=== PATIENT | male | born 1945 | race Caucasian/White ===

== ENCOUNTER 2018-05-23 12:54 | Observation (INO) ==
[2018-05-23] MEDS ORDERED: Sod Chloride 0.9% Inj 1,000 ML IV.SIG ONE (13:31)
[2018-05-23 14:08] LABS: Baso % (Auto) 0.4 % (0.0-2.0); Eos # (Auto) 0.1 th/mm3 (0.0-0.4); Eos % (Auto) 2.3 % (0.0-4.0); Hematocrit 41.4 % (39.0-51.0); Hemoglobin 14.3 gm/dL (13.0-17.0); Lymph # (Auto) 1.8 th/mm3 (1.0-4.8); Lymph % (Auto) 34.7 % (9.0-44.0); Mean Corpuscular HGB Conc 34.6 % (32.0-36.0); Mean Corpuscular Hemoglobin 31.6 pg (27.0-34.0); Mean Corpuscular Volume 91.4 fL (80.0-100.0); Mean Platelet Volume 9.1 fL (7.0-11.0); Mono # (Auto) 0.4 th/mm3 (0.0-0.9); Mono % (Auto) 7.6 % (0.0-8.0); Neut # (Auto) 2.9 th/mm3 (1.8-7.7); Platelet Count 140 th/mm3 (150-450); Red Blood Count 4.54 mil/mm3 (4.50-5.90); Red Cell Distribution Width 12.8 % (11.6-17.2); White Blood Count 5.2 th/mm3 (4.0-11.0)
[2018-05-23 14:35] LABS: Creatine Kinase 351 U/L (39-308)
--- NOTE | 2018-05-23 14:44 | FL ---
EXAM DATE: 05/23/2018 2:39 PM EDT AGE/SEX: 72 years / Male INDICATIONS: Difficulty Swallowing, Patient states that he got steak stuck mid chest CLINICAL DATA: This is the patient's initial encounter. Patient reports that signs and symptoms have been present for 2 days and indicates a pain score of 5/10. MEDICAL/SURGICAL HISTORY: Hypertension. None. COMPARISON: No prior exams available for comparison. FLUORO TIME: 1.5 IMAGE COUNT: Digital images only FINDINGS: Air-contrast views of the hypopharynx demonstrate a normal mucosal surface without filling defect. R apid sequence images of the hypopharynx and cervical esophagus during the passage of barium demonstra te a normal swallowing function. No evidence of aspiration. Multiphasic examination of the esophagu s demonstrates extensive filling defect within the mid to distal esophagus. Very minimal contrast pro ceeded into the distal esophagus/GE junction with limited evaluation. CONCLUSION: Extensive filling defects within the mid to distal esophagus likely representing debris. Evaluation o f distal esophagus is very limited. Patient may have significant narrowing. Endoscopy and/or CT chest may be warranted. Electronically signed by: Yahir Ahn MD 05/23/2018 2:42 PM EDT
[2018-05-23 14:47] LABS: CKMB Percent 1.1 % (0.0-4.0); Creatine Kinase MB 3.8 ng/mL (0.5-3.6)
[2018-05-23 14:50] LABS: Alanine Aminotransferase 41 U/L (12-78); Albumin 4.2 g/dL (3.4-5.0); Anion Gap 8 meq/L (5-15); Aspartate Aminotransferase 22 U/L (15-37); Blood Urea Nitrogen 23 mg/dL (7-18); Calcium 9.4 mg/dL (8.5-10.1); Carbon Dioxide 27.4 meq/L (21.0-32.0); Chloride 108 meq/L (98-107); Glomerular Filtration Rate 56 mL/min (>89); Glucose,Random 94 mg/dL (74-106); Lipase 94 U/L (73-393); Potassium 4.5 meq/L (3.5-5.1); Sodium 143 meq/L (136-145)
[2018-05-23 14:53] LABS: Alkaline Phosphatase 62 U/L (45-117); Total Protein 7.4 g/dL (6.4-8.2)
--- NOTE | 2018-05-23 15:03 | XR ---
EXAM DATE: 05/23/2018 2:57 PM EDT AGE/SEX: 72 years / Male INDICATIONS: Difficulty CLINICAL DATA: This is the patient's initial encounter. Patient reports that signs and symptoms have been present for 1 day and indicates a pain score of 5/10. MEDICAL/SURGICAL HISTORY: Hypertension. None. COMPARISON: No prior exams available for comparison. FINDINGS: A single AP view of the chest demonstrates the lungs to be symmetrically aerated without evidence of mass, infiltrate or effusion. Basilar atelectasis minimal. The cardiomediastinal contours are unrema rkable. Osseous structures are intact. CONCLUSION: Minimal basilar atelectasis. Exam otherwise unremarkable. Electronically signed by: Anthony Robins MD 05/23/2018 3:01 PM EDT
[2018-05-23] MEDS ORDERED: Glycopyrrolate Inj 1 MG/5 ML Syringe IV.PUSH ONE (15:14)
[2018-05-23] MEDS ORDERED: Lidocaine PF 1% Inj 5 ML Syringe INFILTRATN ONE (15:14)
[2018-05-23] MEDS ORDERED: Succinylcholine Inj 100 MG/5 ML Syringe IV.PUSH ONE (15:14)
[2018-05-23] MEDS ORDERED: hydrALAZINE HCl Inj 20 MG/ML Vial IV.PUSH ONE (15:14)
[2018-05-23] MEDS ORDERED: Bisacodyl 10 MG Supp RECTAL PRN (16:18)
[2018-05-23] MEDS ORDERED: Acetaminophen 325 MG Tablet PO PRN (16:18)
[2018-05-23] MEDS ORDERED: Temazepam 15 MG Capsule PO PRN (16:18)
--- NOTE | 2018-05-23 16:28 | ED ---
HPI General Chief Complaint: Abdominal Pain Stated Complaint: difficulty swallowing Time Seen by Provider: 05/23/18 13:19 Source: patient and family Mode of arrival: ambulatory Limitations: no limitations History of Present Illness HPI narrative: 72-year-old male the presents to the ED for evaluation of trouble swallowing. Patient has had this for since yesterday. Per patient yesterday he had dinner and then he noted that he could not keep anything down and all his foot came back up. He states that he has had stuff like this before where he usually does not stay this long. Per patient today he had breakfast and all he was doing seen in the [facility] and then everything came back up. He cannot keep anything down. Per patient ever since he has not been able to even keep down his secretions. He keeps throwing up his saliva and phlegm. He has tried to drink fluids but not success. He states that he feels like there is is a "blockage". But denies feeling there is a food stuck on his throat. Per patient he feels like he just will not go. He states that he is never had an EGD before. Per patient he currently has no pain. He does feel nauseous and is actively coughing up and throwing up his secretions. She denies any chest pain or shortness of breath. No other medical issues at this time. Denies any recent surgeries. Per patient he is never been seen for this before as he usually gets better on his own. Related Data Home Medications Medication Instructions Recorded Confirmed aspirin 81 mg PO DAILY 05/23/18 05/23/18 citalopram 20 mg PO DAILY 05/23/18 05/23/18 diclofenac potassium 75 mg PO DAILY 05/23/18 05/23/18 glucosamine sulfate [Glucosamine] 2,000 mg PO BID 05/23/18 05/23/18 losartan 50 mg PO DAILY 05/23/18 05/23/18 simvastatin 20 mg PO QPM 05/23/18 05/23/18 Allergies Allergy/AdvReac Type Severity Reaction Status Date / Time No Known Allergies Allergy Unverified 05/23/18 13:12 Review of Systems ROS Unobtainable All other systems reviewed negative except as stated in HPI [facility] Medical History Medical History Back ache (Acute) Hypercholesteremia (Acute) Hypertension (Acute) Left knee pain (Acute) Prostate CA (Acute) Spermatic cord cyst (Acute) Social History Social History Substance History: No History of Abuse Smoking Status: Former smoker Tobacco Type: Cigarettes How Often Do You Have a Drink Containing Alcohol: 2 to 4 times a month Recent Travel in [facility] within the Last 8 Weeks: No Recent Out of Country Travel within the Last 8 Weeks: No Immunization History Tetanus Immunization: <5 Years Hx Influenza Vaccine This Season: Yes Exam Narrative Exam Narrative: GENERAL: Well-appearing and slightly obese SKIN: Focused skin assessment warm/dry. HEAD: Atraumatic. Normocephalic. EYES: Pupils equal and round. No scleral icterus. No injection or drainage. ENT: No nasal bleeding or discharge. Mucous membranes pink and moist. Tongue is midline. No uvula deviation. NECK: Trachea midline. No JVD. CARDIOVASCULAR: Regular rate and rhythm. No murmur appreciated. RESPIRATORY: No accessory muscle use. Clear to auscultation. Breath sounds equal bilaterally. GASTROINTESTINAL: Abdomen soft, non-tender, nondistended. Hepatic and splenic margins not palpable. MUSCULOSKELETAL: No obvious deformities. No clubbing. No cyanosis. No edema. NEUROLOGICAL: Awake and alert. No obvious cranial nerve deficits. Motor grossly within normal limits. Normal speech. PSYCHIATRIC: Appropriate mood and affect; insight and judgment normal. Course Initial Documented Vital Signs Temperature 98.5 F 05/23/18 13:07 Pulse Rate 51 L 05/23/18 13:07 Respiratory Rate 20 05/23/18 13:07 Blood Pressure 165/77 H 05/23/18 13:07 Pulse Oximetry 96 05/23/18 13:07 Last Documented Vital Signs Temperature 98.5 F 05/23/18 13:07 Pulse Rate 53 L 05/23/18 13:38 Respiratory Rate 18 05/23/18 13:38 Blood Pressure 165/77 H 05/23/18 13:07 Pulse Oximetry 97 05/23/18 13:38 Medical Decision Making MELODY Attestation MELODY supervised visit: Yes MDM Narrative Medical decision making narrative: 72-year-old male the presents to the ED for evaluation of possible dysphagia. Patient was properly examined and was found to have signs and symptoms consistent appears to be dysphagic. Unclear etiology. Per patient he feels like there is a blockage but no actual food stuck in there. I asked him this multiple times. Per patient he is never had a scope or EGD for this. He does appear to be actively coughing up his secretions and does not appear to be able to swallow his own saliva. At this time a recommend labs and imaging. Patient was given glucagon with no success. Barium swallow was ordered to rule out any sign of acute obstruction as per patient she does not feel like his food is stuck with more like there is something blocking the food going through. This was done and did not show any sign of disease but hard to assess. Does appear to be a lot of food stuck in the esophagus. This was discussed with Dr. Ge who states that we should admit the patient to the medical team and she will do EGD tomorrow as unfortunately that is likely too much barium for her to do good EGD today. Once the patient n.p.o. Case discussed with patient and family who agree with plan. Case discussed with Dr. Garcia who was made aware of findings and agrees with plan. Case discussed with Dr. Bynum who agrees to admission to her service. Differential Diagnosis Differential Diagnosis: Food bolus versus dysphagia versus esophageal stricture versus esophageal spasm Medical Records Medical records reviewed: Yes I reviewed the patient's medical records. Lab Data Lab results reviewed: Yes I reviewed the patient's lab results. Lab results narrative: Troponin and CK-MB negative. Result diagrams: 05/23/18 13:55 05/23/18 13:55 Lab Results 05/23/18 05/23/18 05/23/18 Range/Units 13:55 13:55 13:55 WBC 5.2 (4.0-11.0) th/mm3 RBC 4.54 (4.50-5.90) mil/mm3 Hgb 14.3 (13.0-17.0) gm/dL Hct 41.4 (39.0-51.0) % MCV 91.4 (80.0-100.0) fL MCH 31.6 (27.0-34.0) pg MCHC 34.6 (32.0-36.0) % RDW 12.8 (11.6-17.2) % Plt Count 140 L (150-450) th/mm3 MPV 9.1 (7.0-11.0) fL Neut % (Auto) 55.0 (16.0-70.0) % Lymph % (Auto) 34.7 (9.0-44.0) % Cooke % (Auto) 7.6 (0.0-8.0) % Eos % (Auto) 2.3 (0.0-4.0) % Baso % (Auto) 0.4 (0.0-2.0) % Neut # (Auto) 2.9 (1.8-7.7) th/mm3 Lymph # (Auto) 1.8 (1.0-4.8) th/mm3 Cooke # (Auto) 0.4 (0.0-0.9) th/mm3 Eos # (Auto) 0.1 (0.0-0.4) th/mm3 Baso # (Auto) 0.0 (0.0-0.2) th/mm3 WBC Differential . Differential Comment Auto diff final Sodium 143 (136-145) meq/L Potassium 4.5 (3.5-5.1) meq/L Chloride 108 H (98-107) meq/L Carbon Dioxide 27.4 (21.0-32.0) meq/L Anion Gap 8 (5-15) meq/L BUN 23 H (7-18) mg/dL Creatinine 1.26 (0.60-1.30) mg/dL Estimated GFR 56 L (>89) mL/min Random Glucose 94 (74-106) mg/dL Lactic Acid (0.4-2.0) mmol/L Calcium 9.4 (8.5-10.1) mg/dL Total Bilirubin 0.5 (0.2-1.0) mg/dL AST 22 (15-37) U/L ALT 41 (12-78) U/L Alkaline Phosphatase 62 (45-117) U/L Total Creatine Kinase 351 H (39-308) U/L CK-MB (CK-2) 3.8 H (0.5-3.6) ng/mL CK-MB (CK-2) % 1.1 (0.0-4.0) % Troponin I Less than 0.02 L (0.02-0.05) ng/mL Total Protein 7.4 (6.4-8.2) g/dL Albumin 4.2 (3.4-5.0) g/dL Lipase 94 (73-393) U/L 05/23/18 Range/Units 14:00 WBC (4.0-11.0) th/mm3 RBC (4.50-5.90) mil/mm3 Hgb (13.0-17.0) gm/dL Hct (39.0-51.0) % MCV (80.0-100.0) fL MCH (27.0-34.0) pg MCHC (32.0-36.0) % RDW (11.6-17.2) % Plt Count (150-450) th/mm3 MPV (7.0-11.0) fL Neut % (Auto) (16.0-70.0) % Lymph % (Auto) (9.0-44.0) % Cooke % (Auto) (0.0-8.0) % Eos % (Auto) (0.0-4.0) % Baso % (Auto) (0.0-2.0) % Neut # (Auto) (1.8-7.7) th/mm3 Lymph # (Auto) (1.0-4.8) th/mm3 Cooke # (Auto) (0.0-0.9) th/mm3 Eos # (Auto) (0.0-0.4) th/mm3 Baso # (Auto) (0.0-0.2) th/mm3 WBC Differential Differential Comment Sodium (136-145) meq/L Potassium (3.5-5.1) meq/L Chloride (98-107) meq/L Carbon Dioxide (21.0-32.0) meq/L Anion Gap (5-15) meq/L BUN (7-18) mg/dL Creatinine (0.60-1.30) mg/dL Estimated GFR (>89) mL/min Random Glucose (74-106) mg/dL Lactic Acid 0.9 (0.4-2.0) mmol/L Calcium (8.5-10.1) mg/dL Total Bilirubin (0.2-1.0) mg/dL AST (15-37) U/L ALT (12-78) U/L Alkaline Phosphatase (45-117) U/L Total Creatine Kinase (39-308) U/L CK-MB (CK-2) (0.5-3.6) ng/mL CK-MB (CK-2) % (0.0-4.0) % Troponin I (0.02-0.05) ng/mL Total Protein (6.4-8.2) g/dL Albumin (3.4-5.0) g/dL Lipase (73-393) U/L Imaging Data Attestation: I personally reviewed and interpreted this imaging study as follows : Radiologist's impression: ITS Impressions Chest X-Ray 05/23/18 13:31 CONCLUSION: Minimal basilar atelectasis. Exam otherwise unremarkable. Barium Swallow X-Ray 05/23/18 13:33 CONCLUSION: Extensive filling defects within the mid to distal esophagus likely representing debris. Evaluation of distal esophagus is very limited. Patient may have significant narrowing. Endoscopy and/or CT chest may be warranted. ECG Data EKG Prior to Arrival: No Attestation: I personally reviewed and interpreted this ECG as follows: (EKG shows sinus rhythm with no sign of acute ischemia but sinus bradycardia read by me and attending.) Discharge Plan Discharge Disposition Patient Disposition: 30 Still Patient Discharge Details Discharge Problem: Acute obstruction of esophagus Physicians Team ED Provider: Augie Sandhu ED Midlevel Provider: Marcos Marino Primary Care Provider: NON STAFF,PROVIDER Attending Provider: Zarina Heller Rxs /Orders / Referrals /Forms Prescriptions: No Action glucosamine sulfate [Glucosamine] 500 mg Tablet 2,000 mg PO BID RF: 0 citalopram 20 mg Tablet 20 mg PO DAILY RF: 0 diclofenac potassium 50 mg Tablet 75 mg PO DAILY RF: 0 aspirin 81 mg Tablet,Chewable 81 mg PO DAILY RF: 0 losartan 50 mg Tablet 50 mg PO DAILY RF: 0 simvastatin 20 mg Tablet 20 mg PO QPM RF: 0 Discharge Interventions Interventions: Vital Signs Last Done: 05/23/18 13:38 Status ED Status: Admitted Observation Patient
[2018-05-23] MEDS ORDERED: Enoxaparin Inj 40 MG/0.4 ML Syringe SQ SCH (16:30)
--- NOTE | 2018-05-23 16:48 | P.CONGI ---
History of Present Illness Consult date: 05/23/18 Chief complaint: acute dysphangia, possible bolus History of Present Illness: This is 72-year-old male the presents to the ED for evaluation of dysphagia and inability to tolerate PO intake. This started yesterday during dinner, states in middle of dinner, every thing felt stuck in lower esophagus where nothing was going down, at that time, he vomited and was able to go back to eating, he finished his dinner, had a good night of sleep. During breakfast today, nothing was going down, he spent most of the time in parking lot, was bringing up phlegm. Endorses hx of this before but nothing this bad. Endorses several episodes of dysphagia over the past months but nothing frequent or that would last for long time. Endorses GERD, used to take PPI but was discontinued and now he eats tums like candy. He never had EGD before. Denies abd pain, diarrhea , melena or hematochezia. BS showed extensive filling defects within the mid to distal esophagus likely representing debris. Evaluation of distal esophagus is very limited. <Roya Anthony - Last Filed: 05/27/18 23:41> Review of Systems All other systems reviewed negative except as stated in HPI <Roya Anthony - Last Filed: 05/27/18 23:41> PMFSH - Medical History Medical History: Medical History (Last Updated 05/23/18 @ 16:41 by HOLLIE Ortiz) Back ache GERD (gastroesophageal reflux disease) Hypercholesteremia Hypertension Left knee pain Prostate CA Spermatic cord cyst <Cherry Ge - Last Filed: 05/23/18 20:48> - History History Provided By: Patient, Family Member - Medical History Medical History: Medical History (Last Updated 05/23/18 @ 16:41 by HOLLIE Ortiz) Back ache GERD (gastroesophageal reflux disease) Hypercholesteremia Hypertension Left knee pain Prostate CA Spermatic cord cyst - Surgical History Surgical History: Surgical History (Last Updated 05/23/18 @ 17:06 by Dorothy Moyer) H/O lumbar discectomy H/O: knee surgery History of cervical spinal arthrodesis - Family History Family History: Family History (Last Updated 05/23/18 @ 17:09 by Dorothy Moyer) Mother Colon cancer - Tobacco History Tobacco Use In Past 30 Days: No Smoking Status: Former smoker Tobacco Type: Cigarettes - Alcohol History How Often Do You Have a Drink Containing Alcohol: 2 to 4 times a month - Substance Use History Substance History: No History of Abuse - Travel History Recent Travel in the [place] Within the Last 8 Weeks: No Recent Travel Out of the Country Within the Last 8 Weeks: No - Immunization History Tetanus Immunization: <5 Years Hx Influenza Vaccine This Season: Yes <Roya Anthony - Last Filed: 05/27/18 23:41> Medications and Allergies Active Medications: Active Medications Acetaminophen (Tylenol) 650 mg PO Q4H PRN PRN Reason: Temp > 100.4 Al Hydroxide/Mg Hydroxide (Milk Of Magnesia Liq) 30 ml PO Q12H PRN PRN Reason: Mild Constipation Bisacodyl (Dulcolax Supp) 10 mg RECTAL DAILY PRN PRN Reason: SEVERE CONSITIPATION Enalaprilat (Vasotec Inj) 2.5 mg IV.PUSH Q8H PRN PRN Reason: SBP>160, DBP>90 Enoxaparin Sodium (Lovenox Inj) 40 mg SQ Q24H [facility] Last Admin: 05/23/18 20:32 Dose: Not Given Sodium Chloride (Ns Inj) 1,000 mls @ 100 mls/hr IV.CONT .Q10H [facility] Last Admin: 05/23/18 17:09 Dose: 100 mls/hr Lactulose (Lactulose Liq) 30 ml PO DAILY PRN PRN Reason: SEVERE CONSITIPATION Metoclopramide HCl (Reglan Inj) 5 mg IV.PUSH Q6HR PRN; Protocol PRN Reason: NAUSEA OR VOMITING Miscellaneous Information ([facility] Nursing Information) 1 each OTHER UNSCH PRN PRN Reason: SEE LABEL COMMENTS Stop: 05/24/18 20:15 Pantoprazole Sodium (Protonix Inj) 40 mg IV.PUSH Q12H [facility] Last Admin: 05/23/18 19:53 Dose: 40 mg Senna/Docusate Sodium (Amberly-Colace) 1 tab PO BID [facility] Sennosides (Senokot) 17.2 mg PO Q12H PRN PRN Reason: Moderate Constipation Temazepam (Restoril) 15 mg PO HS PRN PRN Reason: INSOMNIA <Cherry Ge - Last Filed: 05/23/18 20:48> Active Medications: Active Medications Acetaminophen (Tylenol) 650 mg PO Q4H PRN PRN Reason: Temp > 100.4 Al Hydroxide/Mg Hydroxide (Milk Of Magnesia Liq) 30 ml PO Q12H PRN PRN Reason: Mild Constipation Bisacodyl (Dulcolax Supp) 10 mg RECTAL DAILY PRN PRN Reason: SEVERE CONSITIPATION Enalaprilat (Vasotec Inj) 2.5 mg IV.PUSH Q8H PRN PRN Reason: SBP>160, DBP>90 Enoxaparin Sodium (Lovenox Inj) 40 mg SQ Q24H [facility] Sodium Chloride (Ns Inj) 1,000 mls @ 100 mls/hr IV.CONT .Q10H [facility] Lactulose (Lactulose Liq) 30 ml PO DAILY PRN PRN Reason: SEVERE CONSITIPATION Metoclopramide HCl (Reglan Inj) 5 mg IV.PUSH Q6HR PRN; Protocol PRN Reason: NAUSEA OR VOMITING Senna/Docusate Sodium (Amberly-Colace) 1 tab PO BID [facility] Sennosides (Senokot) 17.2 mg PO Q12H PRN PRN Reason: Moderate Constipation Temazepam (Restoril) 15 mg PO HS PRN PRN Reason: INSOMNIA <Roya Anthony - Last Filed: 05/27/18 23:41> Allergies Allergy/AdvReac Type Severity Reaction Status Date / Time No Known Allergies Allergy Unverified 05/23/18 13:12 Home Medications Medication Instructions Recorded Confirmed Type aspirin 81 mg PO DAILY 05/23/18 05/23/18 History citalopram 20 mg PO DAILY 05/23/18 05/23/18 History glucosamine sulfate [Glucosamine] 2,000 mg PO BID 05/23/18 05/23/18 History losartan 50 mg PO DAILY 05/23/18 05/23/18 History simvastatin 20 mg PO QPM 05/23/18 05/23/18 History Exam Vital signs: Vital Signs 05/23/18 13:07 05/23/18 13:38 05/23/18 17:00 Temperature 98.5 F Pulse Rate 51 L 53 L 48 L Respiratory Rate 20 18 16 Blood Pressure 165/77 H 160/74 H Pulse Oximetry 96 97 05/23/18 19:14 05/23/18 19:30 05/23/18 19:45 Temperature 97.6 F Pulse Rate 78 63 65 Respiratory Rate 10 L 12 12 Blood Pressure 140/77 148/77 H 147/72 H Pulse Oximetry 97 98 100 05/23/18 20:00 Temperature 97.3 F L Pulse Rate 62 Respiratory Rate 13 Blood Pressure 150/83 H Pulse Oximetry 98 Intake & Output 05/23/18 05/23/18 05/24/18 06:59 18:59 06:59 Intake Total 1221 / 1221 Balance 1221 / 1221 Weight 99.79 kg Intake: Oral 221 / 221 Anesthesia Amount 1000 / 1000 <Cherry Ge - Last Filed: 05/23/18 20:48> Vital signs: Vital Signs 05/23/18 13:07 05/23/18 13:38 Temperature 98.5 F Pulse Rate 51 L 53 L Respiratory Rate 20 18 Blood Pressure 165/77 H Pulse Oximetry 96 97 Intake & Output 05/22/18 05/23/18 05/23/18 18:59 06:59 18:59 Weight 99.79 kg - Constitutional no acute distress - Routine HEENT Exam Head: Present: normocephalic Eye: Present: PERRL - Routine Respiratory Exam Present: CTA bilaterally - Routine Cardiovascular Exam Present: RRR - Routine Abdominal Exam Present: soft, normoactive bowel sounds. Absent: tenderness, distended - Routine Extremities Exam Absent: cyanosis - Routine Skin Exam Present: intact, dry. Absent: jaundice - Routine Neurological Exam Present: alert, oriented X3 <GeovannanurysRobertoclara - Last Filed: 05/27/18 23:41> Results - Labs CBC & Chem 7: 05/23/18 13:55 05/23/18 13:55 Labs: Laboratory Results - last 24 hr 05/23/18 05/23/18 05/23/18 13:55 13:55 13:55 WBC 5.2 RBC 4.54 Hgb 14.3 Hct 41.4 MCV 91.4 MCH 31.6 MCHC 34.6 RDW 12.8 Plt Count 140 L MPV 9.1 Neut % (Auto) 55.0 Lymph % (Auto) 34.7 Avery % (Auto) 7.6 Eos % (Auto) 2.3 Baso % (Auto) 0.4 Neut # (Auto) 2.9 Lymph # (Auto) 1.8 Avery # (Auto) 0.4 Eos # (Auto) 0.1 Baso # (Auto) 0.0 WBC Differential . Differential Comment Auto diff final Sodium 143 Potassium 4.5 Chloride 108 H Carbon Dioxide 27.4 Anion Gap 8 BUN 23 H Creatinine 1.26 Estimated GFR 56 L Random Glucose 94 Lactic Acid Calcium 9.4 Total Bilirubin 0.5 AST 22 ALT 41 Alkaline Phosphatase 62 Total Creatine Kinase 351 H CK-MB (CK-2) 3.8 H CK-MB (CK-2) % 1.1 Troponin I Less than 0.02 L Total Protein 7.4 Albumin 4.2 Lipase 94 05/23/18 14:00 WBC RBC Hgb Hct MCV MCH MCHC RDW Plt Count MPV Neut % (Auto) Lymph % (Auto) Avery % (Auto) Eos % (Auto) Baso % (Auto) Neut # (Auto) Lymph # (Auto) Avery # (Auto) Eos # (Auto) Baso # (Auto) WBC Differential Differential Comment Sodium Potassium Chloride Carbon Dioxide Anion Gap BUN Creatinine Estimated GFR Random Glucose Lactic Acid 0.9 Calcium Total Bilirubin AST ALT Alkaline Phosphatase Total Creatine Kinase CK-MB (CK-2) CK-MB (CK-2) % Troponin I Total Protein Albumin Lipase - Imaging Impressions Chest X-Ray 05/23/18 13:31 CONCLUSION: Minimal basilar atelectasis. Exam otherwise unremarkable. Barium Swallow X-Ray 05/23/18 13:33 CONCLUSION: Extensive filling defects within the mid to distal esophagus likely representing debris. Evaluation of distal esophagus is very limited. Patient may have significant narrowing. Endoscopy and/or CT chest may be warranted. <Cherry Ge - Last Filed: 05/23/18 20:48> - Labs CBC & Chem 7: 05/23/18 13:55 05/24/18 03:30 Labs: Laboratory Results - last 24 hr 05/23/18 05/23/18 05/23/18 13:55 13:55 13:55 WBC 5.2 RBC 4.54 Hgb 14.3 Hct 41.4 MCV 91.4 MCH 31.6 MCHC 34.6 RDW 12.8 Plt Count 140 L MPV 9.1 Neut % (Auto) 55.0 Lymph % (Auto) 34.7 Avery % (Auto) 7.6 Eos % (Auto) 2.3 Baso % (Auto) 0.4 Neut # (Auto) 2.9 Lymph # (Auto) 1.8 Avery # (Auto) 0.4 Eos # (Auto) 0.1 Baso # (Auto) 0.0 WBC Differential . Differential Comment Auto diff final Sodium 143 Potassium 4.5 Chloride 108 H Carbon Dioxide 27.4 Anion Gap 8 BUN 23 H Creatinine 1.26 Estimated GFR 56 L Random Glucose 94 Lactic Acid Calcium 9.4 Total Bilirubin 0.5 AST 22 ALT 41 Alkaline Phosphatase 62 Total Creatine Kinase 351 H CK-MB (CK-2) 3.8 H CK-MB (CK-2) % 1.1 Troponin I Less than 0.02 L Total Protein 7.4 Albumin 4.2 Lipase 94 05/23/18 14:00 WBC RBC Hgb Hct MCV MCH MCHC RDW Plt Count MPV Neut % (Auto) Lymph % (Auto) Avery % (Auto) Eos % (Auto) Baso % (Auto) Neut # (Auto) Lymph # (Auto) Avery # (Auto) Eos # (Auto) Baso # (Auto) WBC Differential Differential Comment Sodium Potassium Chloride Carbon Dioxide Anion Gap BUN Creatinine Estimated GFR Random Glucose Lactic Acid 0.9 Calcium Total Bilirubin AST ALT Alkaline Phosphatase Total Creatine Kinase CK-MB (CK-2) CK-MB (CK-2) % Troponin I Total Protein Albumin Lipase - Imaging Impressions Chest X-Ray 05/23/18 13:31 CONCLUSION: Minimal basilar atelectasis. Exam otherwise unremarkable. Barium Swallow X-Ray 05/23/18 13:33 CONCLUSION: Extensive filling defects within the mid to distal esophagus likely representing debris. Evaluation of distal esophagus is very limited. Patient may have significant narrowing. Endoscopy and/or CT chest may be warranted. <Roya Anthony - Last Filed: 05/27/18 23:41> Assessment and Plan - Attending Attestation seen, examined agree with above <Cherry Ge - Last Filed: 05/23/18 20:48> - Plan - Dysphagia/ ?FB impaction- This started yesterday during dinner, states in middle of dinner, every thing felt stuck in lower esophagus where nothing was going down, at that time, he vomited and was able to go back to eating, he finished his dinner, had a good night of sleep. During breakfast today, nothing was going down, he spent most of the time in parking lot, was bringing up phlegm. Endorses hx of this before but nothing this bad. He had several episodes of dysphagia over the past months but nothing frequent or that would last for long time. Endorses GERD, used to take PPI but was discontinued and now he eats tums like candy. He never had EGD before. Denies abd pain, diarrhea, melena or hematochezia. BS showed extensive filling defects within the mid to distal esophagus likely representing debris. Evaluation of distal esophagus is very limited. - HTN per attending Plan: - NPO - EGD/ FB disimpaction today - Consents - Supportive care - Pt seen and examined by Dr. Ge and myself and this note is written on her behalf. <Roya Anthony - Last Filed: 05/27/18 23:41>
[2018-05-23] MEDS: Sod Chloride 0.9% Inj 1,000 ML IV.CONT SCH (17:09)
--- NOTE | 2018-05-23 17:26 | P.HP ---
History of Present Illness Primary Care Physician: PROVIDER NON STAFF Chief Complaint: Dysphagia History of Present Illness: This is a 72-year-old male with past medical history significant for hypertension, dyslipidemia, prostate cancer and bradycardia who presents to [facility] ED with complaints difficulty swallowing. Patient states that during dinner last night he began to have a sensation of food being stuck in his chest at which point he vomited with relief. Patient states he went to bed later that night and soft without any difficulty. However, during breakfast this morning he was unable to keep anything down. Patient reports he has had a few episodes in the past but nothing to this extent. He denies any other associated symptoms such as nausea or abdominal pain. He denies any fever or chills. He denies any previous history of EGD/dilatations. He denies any chest pain or shortness of breath. He denies any urinary difficulties, diarrhea or constipation. Denies any black/tarry/bloody stools. Barium swallow was obtained in the ED which showed extensive filling defects within the mid to distal esophagus likely representing debris with evaluation of the distal esophagus being limited, concern for significant narrowing. Patient is already been evaluated by GI with a plan for EGD/foreign body disimpaction today. - Inpatient Certification If this patient has been admitted as an Inpatient: I certify that the inpatient services were ordered in accordance with Medicare regulations governing the order. This includes certification that hospital inpatient services are reasonable and necessary and in the case of services not specified as inpatient-only under 42 CFR 419.22(n), that they are appropriately provided as inpatient services in accordance to with the 2-midnight benchmark under 43 CFR 412.3(e) Review of Systems All other systems reviewed negative except as stated in HPI PMFSH - History History Provided By: Patient, Family Member - Medical History Medical History: Medical History (Last Reviewed 05/23/18 @ 17:06 by Dorothy Moyer) Back ache GERD (gastroesophageal reflux disease) Hypercholesteremia Hypertension Left knee pain Prostate CA Spermatic cord cyst - Surgical History Surgical History: Surgical History (Last Updated 05/23/18 @ 17:06 by Dorothy Moyer) H/O lumbar discectomy H/O: knee surgery History of cervical spinal arthrodesis - Family History Family History: Family History (Last Updated 05/23/18 @ 17:09 by Dorothy Moyer) Mother Colon cancer - Tobacco History Tobacco Use In Past 30 Days: No Smoking Status: Former smoker Tobacco Type: Cigarettes - Alcohol History How Often Do You Have a Drink Containing Alcohol: 2 to 4 times a month - Substance Use History Substance History: No History of Abuse - Travel History Recent Travel in the [place] Within the Last 8 Weeks: No Recent Travel Out of the Country Within the Last 8 Weeks: No - Immunization History Tetanus Immunization: <5 Years Hx Influenza Vaccine This Season: Yes Medications and Allergies Active Medications: Active Medications Acetaminophen (Tylenol) 650 mg PO Q4H PRN PRN Reason: Temp > 100.4 Al Hydroxide/Mg Hydroxide (Milk Of Magnesia Liq) 30 ml PO Q12H PRN PRN Reason: Mild Constipation Bisacodyl (Dulcolax Supp) 10 mg RECTAL DAILY PRN PRN Reason: SEVERE CONSITIPATION Enalaprilat (Vasotec Inj) 2.5 mg IV.PUSH Q8H PRN PRN Reason: SBP>160, DBP>90 Enoxaparin Sodium (Lovenox Inj) 40 mg SQ Q24H YESICA Sodium Chloride (Ns Inj) 1,000 mls @ 100 mls/hr IV.CONT .Q10H YESICA Lactulose (Lactulose Liq) 30 ml PO DAILY PRN PRN Reason: SEVERE CONSITIPATION Metoclopramide HCl (Reglan Inj) 5 mg IV.PUSH Q6HR PRN; Protocol PRN Reason: NAUSEA OR VOMITING Senna/Docusate Sodium (Amberly-Colace) 1 tab PO BID YESICA Sennosides (Senokot) 17.2 mg PO Q12H PRN PRN Reason: Moderate Constipation Temazepam (Restoril) 15 mg PO HS PRN PRN Reason: INSOMNIA Allergies Allergy/AdvReac Type Severity Reaction Status Date / Time No Known Allergies Allergy Unverified 05/23/18 13:12 Home Medications Medication Instructions Recorded Confirmed Type aspirin 81 mg PO DAILY 05/23/18 05/23/18 History citalopram 20 mg PO DAILY 05/23/18 05/23/18 History diclofenac potassium 75 mg PO DAILY 05/23/18 05/23/18 History glucosamine sulfate [Glucosamine] 2,000 mg PO BID 05/23/18 05/23/18 History losartan 50 mg PO DAILY 05/23/18 05/23/18 History simvastatin 20 mg PO QPM 05/23/18 05/23/18 History Exam Vital signs: Vital Signs 05/23/18 13:07 05/23/18 13:38 Temperature 98.5 F Pulse Rate 51 L 53 L Respiratory Rate 20 18 Blood Pressure 165/77 H Pulse Oximetry 96 97 Intake & Output 05/22/18 05/23/18 05/23/18 18:59 06:59 18:59 Weight 99.79 kg Narrative: GENERAL: This is a very pleasant well-developed well-nourished overweight male patient, INAD. Awake and alert. is at the bedside. SKIN: Warm and dry. HEAD: Atraumatic. Normocephalic. EYES: Pupils equal and round. No scleral icterus. No injection or drainage. ENT: No nasal bleeding or discharge. Mucous membranes pink and moist. NECK: Trachea midline. No JVD. CARDIOVASCULAR: Regular rate and rhythm. RESPIRATORY: No accessory muscle use. Clear to auscultation. Breath sounds equal bilaterally. GASTROINTESTINAL: Abdomen soft, non-tender, nondistended. Hepatic and splenic margins not palpable. MUSCULOSKELETAL: Extremities without clubbing, cyanosis, or edema. No obvious deformities. NEUROLOGICAL: Awake and alert. No obvious cranial nerve deficits. Motor grossly within normal limits. Five out of 5 muscle strength in the arms and legs. Normal speech. PSYCHIATRIC: Appropriate mood and affect; insight and judgment normal. Results - Labs CBC & Chem 7: 05/23/18 13:55 05/23/18 13:55 Labs: Laboratory Results - last 24 hr 05/23/18 05/23/18 05/23/18 13:55 13:55 13:55 WBC 5.2 RBC 4.54 Hgb 14.3 Hct 41.4 MCV 91.4 MCH 31.6 MCHC 34.6 RDW 12.8 Plt Count 140 L MPV 9.1 Neut % (Auto) 55.0 Lymph % (Auto) 34.7 Caldwell % (Auto) 7.6 Eos % (Auto) 2.3 Baso % (Auto) 0.4 Neut # (Auto) 2.9 Lymph # (Auto) 1.8 Caldwell # (Auto) 0.4 Eos # (Auto) 0.1 Baso # (Auto) 0.0 WBC Differential . Differential Comment Auto diff final Sodium 143 Potassium 4.5 Chloride 108 H Carbon Dioxide 27.4 Anion Gap 8 BUN 23 H Creatinine 1.26 Estimated GFR 56 L Random Glucose 94 Lactic Acid Calcium 9.4 Total Bilirubin 0.5 AST 22 ALT 41 Alkaline Phosphatase 62 Total Creatine Kinase 351 H CK-MB (CK-2) 3.8 H CK-MB (CK-2) % 1.1 Troponin I Less than 0.02 L Total Protein 7.4 Albumin 4.2 Lipase 94 05/23/18 14:00 WBC RBC Hgb Hct MCV MCH MCHC RDW Plt Count MPV Neut % (Auto) Lymph % (Auto) Caldwell % (Auto) Eos % (Auto) Baso % (Auto) Neut # (Auto) Lymph # (Auto) Caldwell # (Auto) Eos # (Auto) Baso # (Auto) WBC Differential Differential Comment Sodium Potassium Chloride Carbon Dioxide Anion Gap BUN Creatinine Estimated GFR Random Glucose Lactic Acid 0.9 Calcium Total Bilirubin AST ALT Alkaline Phosphatase Total Creatine Kinase CK-MB (CK-2) CK-MB (CK-2) % Troponin I Total Protein Albumin Lipase - Imaging Impressions Chest X-Ray 05/23/18 13:31 CONCLUSION: Minimal basilar atelectasis. Exam otherwise unremarkable. Barium Swallow X-Ray 05/23/18 13:33 CONCLUSION: Extensive filling defects within the mid to distal esophagus likely representing debris. Evaluation of distal esophagus is very limited. Patient may have significant narrowing. Endoscopy and/or CT chest may be warranted. Caprini VTE Risk Assessment Caprini VTE Risk Assessment: Moderate/High Risk (score >= 2) Caprini Risk Assessment Model: Point Value = 1 Point Value = 2 Point Value = 3 Point Value = 5 Age 41-60 Minor surgery BMI > 25 kg/m2 Swollen legs Varicose veins or History of unexplained or recurrent spontaneous Oral contraceptives or hormone replacement Sepsis (< 1 month) Serious lung disease, including pneumonia (< 1 month) Abnormal pulmonary function Acute myocardial infarction Congestive heart failure (< 1 month) History of inflammatory bowel disease Medical patient at bed rest Age 61-74 Arthroscopic surgery Major open surgery (> 45 min) Laparoscopic surgery (> 45 min) Malignancy Confined to bed (> 72 hours) Immobilizing plaster cast Central venous access Age >= 75 History of VTE Family history of VTE Factor V Leiden Prothrombin [id number] Lupus anticoagulant Anticardiolipin antibodies Elevated serum homocysteine Heparin-induced thrombocytopenia Other congenital or acquired thrombophilia Stroke (< 1 month) Elective arthroplasty Hip, pelvis, or leg fracture Acute spinal cord injury (< 1 month) Prophylaxis Regimen: Total Risk Factor Score Risk Level Prophylaxis Regimen 0-1 Low Early ambulation 2 Moderate Order ONE of the following: *Sequential Compression Device (SCD) *Heparin 5000 units SQ BID 3-4 Higher Order ONE of the following medications: *Heparin 5000 units SQ TID *Enoxaparin/Lovenox 40 mg SQ daily (WT < 150 kg, CrCl > 30 mL/min) *Enoxaparin/Lovenox 30 mg SQ daily (WT < 150 kg, CrCl > 10-29 mL/min) *Enoxaparin/Lovenox 30 mg SQ BID (WT < 150 kg, CrCl > 30 mL/min) AND/OR *Sequential Compression Device (SCD) 5 or more Highest Order ONE of the following medications: *Heparin 5000 units SQ TID (Preferred with Epidurals) *Enoxaparin/Lovenox 40 mg SQ daily (WT < 150 kg, CrCl > 30 mL/min) *Enoxaparin/Lovenox 30 mg SQ daily (WT < 150 kg, CrCl > 10-29 mL/min) *Enoxaparin/Lovenox 30 mg SQ BID (WT < 150 kg, CrCl > 30 mL/min) AND *Sequential Compression Device (SCD) Assessment and Plan - Plan 72-year-old male with past medical history significant for hypertension, dyslipidemia, prostate cancer and bradycardia who presents to [facility] ED with complaints difficulty swallowing. Dysphagia, possible FB impaction Barium swallow shows extensive filling defects within the mid to distal esophagus likely representing debris, distal esophagus evaluation limited, concern for significant narrowing -GI following, appreciate assistance. Plan for EGD/foreign body disimpaction later today -Keep patient n.p.o. Give IV fluids hydration. Rhabdomyolysis, mild, suspect secondary to dehydration CK 351 -IV fluids ordered -Monitor kidney function Hypertension Patient unable to take home dose of losartan 50 mg daily at this time 2/2 NPO status at present -Vasotec IV prn with parameters -Continue to monitor BP. Will resume home dose of losartan once patient able to tolerate p.o. Bradycardia, chronic, asymptomatic -Cardiac monitoring Dyslipidemia -We will resume patient's home dose of statin therapy once able tolerate p.o. DVT prophylaxis -Lovenox sq Discussed Condition With: patient, , Dr. Heller
--- NOTE | 2018-05-23 19:16 | GIPROC ---
[facility] [address] [facility]. [facility], [address] EGD PROCEDURE REPORT EXAM DATE: 05/23/2018 PATIENT NAME: Husam Pierce MR #: [id number] BIRTHDATE: 1945 ATTENDING: Cherry Ge MD ORDER #: [id number] PROFESSOR OF LANGUAGES: Jacob Lunsford STATUS: inpatient INDICATIONS: The patient is a 72 yr old male here for an EGD due to dysphagia/odynophagia abnormal ba swallow PROCEDURE PERFORMED: EGD w/ biopsy EGD w/ dilation of esophagus via guidewire MEDICATIONS: None and Per Anesthesia. TOPICAL ANESTHETIC: none CONSENT: The patient understands the risks and benefits of the procedure and understands that these risks include, but are not limited to: sedation, allergic reaction, infection, perforation and/or bleeding. Alternative means of evaluation and treatment include, among others: physical exam, x-rays, and/or surgical intervention. The patient elects to proceed with this endoscopic procedure. medical equipment was checked for proper function. Hand hygiene and appropriate measures for infection prevention was taken. After the risks, benefits and alternatives of the procedure were thoroughly explained, Informed consent was verified, confirmed and timeout was successfully executed by the treatment team. The patient was anesthetized with topical anesthesia and the Pentax [id number] endoscope was introduced through the mouth and advanced to the second portion of the duodenum. Retroflexed views revealed a hiatal hernia The gastroscope was then slowly withdrawn and removed. Severe esophagitis/strictureulceration in distal esophagus no foreign body-possible -passed gastritis antrum/healed ulcer-biopsy duodenitis second portion-biopsy. ADVERSE EVENTS: There were no complications. IMPRESSIONS: 1. Severe esophagitis/strictureulceration in distal esophagus no foreign body-possible -passed gastritis antrum/healed ulcer-biopsy duodenitis second portion-biopsy 2. Retroflexed views revealed a hiatal hernia RECOMMENDATIONS: Full liquid diet if tolerated advance to soft ct chest ppi-bid if still cough when eating speech theraphy eval PATIENT CONDITION: stable DISPOSITION: Inpatient REPEAT EXAM: Return 4 weeks EGD Cherry Ge MD eSigned: Cherry Ge MD 05/23/2018 7:16 PM cc: PATIENT NAME: Husam Pierce MR#: [id number]
[2018-05-23] MEDS ORDERED: fentaNYL Citrate Inj 100 MCG/2 ML Ampul ONE (19:21)
[2018-05-23] MEDS: Pantoprazole Inj 40 MG Vial IV.PUSH SCH (19:53)
[2018-05-23] MEDS: Senna/Docusate Sodium 8.6/50 MG Tablet PO SCH (23:05)
[2018-05-23] MEDS ORDERED: MethylPREDNISolone Sod Succinate Inj 125 MG/2 ML Vial IV.PUSH SCH (23:30)
[2018-05-24] MEDS: Sod Chloride 0.9% Inj 1,000 ML IV.CONT SCH (03:10)
[2018-05-24 05:26] LABS: Alanine Aminotransferase 38 U/L (12-78); Albumin 3.6 g/dL (3.4-5.0); Alkaline Phosphatase 54 U/L (45-117); Anion Gap 11 meq/L (5-15); Aspartate Aminotransferase 30 U/L (15-37); Blood Urea Nitrogen 18 mg/dL (7-18); Calcium 9.5 mg/dL (8.5-10.1); Carbon Dioxide 22.7 meq/L (21.0-32.0); Chloride 107 meq/L (98-107); Glomerular Filtration Rate 57 mL/min (>89); Glucose,Random 138 mg/dL (74-106); Sodium 141 meq/L (136-145); Total Protein 7.4 g/dL (6.4-8.2)
[2018-05-24 05:27] LABS: Potassium 4.4 meq/L (3.5-5.1)
[2018-05-24] MEDS ORDERED: MethylPREDNISolone Sod Succinate Inj 125 MG/2 ML Vial IV.PUSH SCH (06:00)
[2018-05-24] MEDS: Senna/Docusate Sodium 8.6/50 MG Tablet PO SCH (09:24)
[2018-05-24] MEDS: Pantoprazole Inj 40 MG Vial IV.PUSH SCH (09:24)
[2018-05-24] MEDS ORDERED: Artificial Tears Opth Drops 15 ML Bottle EACH EYE PRN (09:48)
--- NOTE | 2018-05-24 10:30 | P.PN ---
Subjective Interval history: Pt feeling well, wants to go home today. Pt tolerated the full liquid diet. denies coughing with eating. Denies any pain, nausea or vomiting Discussed w RN and pt will be going to get his CT this morning Physical Exam Vital signs: Vital Signs 05/23/18 13:07 05/23/18 13:38 05/23/18 17:00 Temperature 98.5 F Pulse Rate 51 L 53 L 48 L Respiratory Rate 20 18 16 Blood Pressure 165/77 H 160/74 H Pulse Oximetry 96 97 05/23/18 19:14 05/23/18 19:30 05/23/18 19:45 Temperature 97.6 F Pulse Rate 78 63 65 Respiratory Rate 10 L 12 12 Blood Pressure 140/77 148/77 H 147/72 H Pulse Oximetry 97 98 100 05/23/18 20:00 05/23/18 21:11 05/24/18 00:34 Temperature 97.3 F L 97.8 F 98.2 F Pulse Rate 62 58 L 58 L Respiratory Rate 13 19 18 Blood Pressure 150/83 H 179/81 H 133/69 Pulse Oximetry 98 97 96 05/24/18 03:19 05/24/18 03:37 05/24/18 04:00 Temperature 98.1 F Pulse Rate 55 L 48 L 43 L Respiratory Rate 18 Blood Pressure 128/60 Pulse Oximetry 96 05/24/18 08:03 Temperature 97.9 F Pulse Rate 54 L Respiratory Rate 22 Blood Pressure 133/64 Pulse Oximetry Intake & Output 05/23/18 05/24/18 05/24/18 18:59 06:59 18:59 Intake Total 3221 / 3221 Balance 3221 / 3221 Weight 99.79 kg Intake: IV 1999 / 1999 NS Inj 1,000 ML @ 100 mls/hr IV 1000 / 1000 .CONT .Q10H YESICA Rx#:[id number] NS Inj 1,000 ML @ Wide Open IV. 1000 / 1000 SIG BOLUS ONE Rx#:[id number] Oral 221 / 221 Anesthesia Amount 1000 / 1000 Other: # Voids 5 Date of Last Bowel Movement 05/23/18 Narrative: GENERAL: Awake and alert. is at the bedside. CARDIOVASCULAR: Regular rate and rhythm. RESPIRATORY: No accessory muscle use. no wheezing GASTROINTESTINAL: Abdomen soft, non-tender, nondistended. MUSCULOSKELETAL: Extremities without edema. Results - Labs CBC & Chem 7: 05/23/18 13:55 05/24/18 03:30 Laboratory Results - last 24 hr 05/23/18 05/23/18 05/23/18 13:55 13:55 13:55 WBC 5.2 RBC 4.54 Hgb 14.3 Hct 41.4 MCV 91.4 MCH 31.6 MCHC 34.6 RDW 12.8 Plt Count 140 L MPV 9.1 Neut % (Auto) 55.0 Lymph % (Auto) 34.7 Rich % (Auto) 7.6 Eos % (Auto) 2.3 Baso % (Auto) 0.4 Neut # (Auto) 2.9 Lymph # (Auto) 1.8 Rich # (Auto) 0.4 Eos # (Auto) 0.1 Baso # (Auto) 0.0 WBC Differential . Differential Comment Auto diff final Sodium 143 Potassium 4.5 Chloride 108 H Carbon Dioxide 27.4 Anion Gap 8 BUN 23 H Creatinine 1.26 Estimated GFR 56 L Random Glucose 94 Lactic Acid Calcium 9.4 Total Bilirubin 0.5 AST 22 ALT 41 Alkaline Phosphatase 62 Total Creatine Kinase 351 H CK-MB (CK-2) 3.8 H CK-MB (CK-2) % 1.1 Troponin I Less than 0.02 L Total Protein 7.4 Albumin 4.2 Lipase 94 05/23/18 05/24/18 14:00 03:30 WBC RBC Hgb Hct MCV MCH MCHC RDW Plt Count MPV Neut % (Auto) Lymph % (Auto) Rich % (Auto) Eos % (Auto) Baso % (Auto) Neut # (Auto) Lymph # (Auto) Rich # (Auto) Eos # (Auto) Baso # (Auto) WBC Differential Differential Comment Sodium 141 Potassium 4.4 Chloride 107 Carbon Dioxide 22.7 Anion Gap 11 BUN 18 Creatinine 1.25 Estimated GFR 57 L Random Glucose 138 H Lactic Acid 0.9 Calcium 9.5 Total Bilirubin 0.5 AST 30 ALT 38 Alkaline Phosphatase 54 Total Creatine Kinase CK-MB (CK-2) CK-MB (CK-2) % Troponin I Total Protein 7.4 Albumin 3.6 D Lipase - Imaging Impressions Chest X-Ray 05/23/18 13:31 CONCLUSION: Minimal basilar atelectasis. Exam otherwise unremarkable. Barium Swallow X-Ray 05/23/18 13:33 CONCLUSION: Extensive filling defects within the mid to distal esophagus likely representing debris. Evaluation of distal esophagus is very limited. Patient may have significant narrowing. Endoscopy and/or CT chest may be warranted. Assessment and Plan - Plan 72-year-old male with past medical history significant for hypertension, dyslipidemia, prostate cancer and bradycardia who presents to [facility] ED with complaints difficulty swallowing. Dysphagia, possible FB impaction Barium swallow shows extensive filling defects within the mid to distal esophagus likely representing debris, distal esophagus evaluation limited, concern for significant narrowing -GI following, s/p EGD 05/23/18 showing severe esophagitis/stricture ulceration in distal esophagus w no foreign body found (most likely passed), gastritis antrum/healed ulcer and duodenitis. Biopsies were taken. -will advance pt to soft diet per GI recs. - CT of chest was ordered and showed no focal or acute pulm infiltrates. some nonspecific thickening involving the wall of the distal esophagus at the level of the GE junction. -Discussed w GI, ok to d/c today if tolerating soft diet, f/u w GI in 1 week for repeat EGD/dilatation, PPI BID. Rhabdomyolysis, very mild, most likely secondary to dehydration received IVFs. pt asymptomatic. kidney function wnl. Hypertension stable Bradycardia, chronic, asymptomatic -Cardiac monitoring Dyslipidemia -on home med d/c home today f/u w GI and PCP outpatient. GI in 1 week for repeat EGD/dilatation script in chart soft heart healthy diet activity ad brenda condition stable
--- NOTE | 2018-05-24 18:01 | ECG ---
Date Performed: 05/23/2018 Time Performed: 13:15:05 PTAGE: 72 years EKG: SINUS BRADYCARDIA MARKED LEFT AXIS DEVIATION MODERATE INTRAVENTRICULAR CONDUCTION DELAY ABN ORMAL ECG NO PREVIOUS TRACING DOCTOR: Susan Naranjo Interpretating Date/Time 05/24/2018 17:58:17
== END 2018-05-24 15:15 | disposition home or self-care (01) ==
LOC: NEPFCDU 12:54 → NEPE 12:54 → NEDA 12:54 → NEPFCDU 18:00
PROVIDERS: ADMIT Hospitalist; ATTEND Hospitalist
DX: T18.108A Unspecified foreign body in esophagus causing other injury, initial encounter; K29.80 Duodenitis without bleeding; Z79.899 Other long term (current) drug therapy; R93.3 Abnormal findings on diagnostic imaging of other parts of digestive tract; I10 Essential (primary) hypertension; R11.2 Nausea with vomiting, unspecified; J98.11 Atelectasis; C61 Malignant neoplasm of prostate; R13.11 Dysphagia, oral phase; Z87.891 Personal history of nicotine dependence; R00.1 Bradycardia, unspecified; E78.00 Pure hypercholesterolemia, unspecified; Z85.46 Personal history of malignant neoplasm of prostate; M25.562 Pain in left knee; K22.2 Esophageal obstruction; K21.9 Gastro-esophageal reflux disease without esophagitis; R05 Cough; R13.10 Dysphagia, unspecified; R10.9 Unspecified abdominal pain; K29.70 Gastritis, unspecified, without bleeding; K22.10 Ulcer of esophagus without bleeding; M54.9 Dorsalgia, unspecified; K44.9 Diaphragmatic hernia without obstruction or gangrene